=== PATIENT | male | born 1995 | race Caucasian/White ===

== ENCOUNTER 2019-12-19 15:36 | Emergency (ER) | payer OTHER, MEDICAID, SELFPAY ==
[2019-12-19 16:10] VITALS: BP 125/92; PULSE 54; RESP 16; TEMP 36.6; O2SAT 100; BMI 20.9
--- NOTE | 2019-12-19 16:16 | DI.RAD.S_ITS ---
PROCEDURE: XR FINGER LT MIN 2V INDICATIONS: jammed left fifth digit TECHNIQUE: PA view of the hand. Oblique and lateral views of the left small finger. COMPARISON: None. FINDINGS: Bones: A comminuted, minimally displaced fracture is seen in the shaft of the 5th proximal phalanx. The fracture occurred through a lucent osseous lesion that is most compatible with an enchondroma. Soft tissues: No suspicious soft tissue calcifications. IMPRESSION: Comminuted minimally displaced pathologic fracture of the shaft of the 5th proximal phalanx. 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 Dictated by: Navjot Jean M.D. on 12/19/2019 at 16:30 Approved by: Navjot Jean M.D. on 12/19/2019 at 16:35
--- NOTE | 2019-12-19 17:55 | PC.NURSE ---
Patient requesting to leave. I have been here for three hours I just need my finger fixed. Can't you just call me with the results Informed patient xray results are back, advised patient to stay and wait for provider to go over them with him and discuss a treatment plan Informed patient ER is very busy today and let patient know we have another provider coming on and will get him seen as soon as possible.
--- NOTE | 2019-12-19 18:36 | ED.GENADULT ---
HPI - General Adult General Chief complaint: Extremity Injury, Upper Stated complaint: left 5th finger injury Time Seen by Provider: 12/19/19 18:26 Source: patient Mode of arrival: Ambulatory Limitations: no limitations History of Present Illness HPI narrative: 24-year-old male here for evaluation of left little finger injury. Patient states that he was caring a box and it started to drop when he put his hand under it and it jammed his finger and bent it to the side. Has had pain since then. No prior injuries. Has not tried anything for the symptoms prior to arrival Related Data Allergies Allergy/AdvReac Type Severity Reaction Status Date / Time No Known Drug Allergies Allergy Verified 12/19/19 16:16 Review of Systems Constitutional Constitutional: Denies fever(s) Cardiovascular Cardiovascular: Denies chest pain and Denies dyspnea Respiratory Respiratory: Denies dyspnea Gastrointestinal Gastrointestinal: Denies abdominal pain, Denies nausea and Denies vomiting Musculoskeletal Comments: Left little finger pain Integumentary/Breasts Skin/Breast: Denies lesions and Denies rash Neurologic Neurologic: Denies behavioral changes Psychiatric Psychiatric: Denies behavioral changes Hematologic/Lymphatic Hematologic/Lymphatic: Denies easy bleeding and Denies easy bruising Allergic/Immunologic Allergic/Immunologic: Denies urticaria Patient History Medical History Healthy adult (Acute) Social History Smoking Status: Current every day smoker Smoking Status: Current every day smoker alcohol intake frequency: a few times a week Substance Use Type: does not use Exam Initial Vital Signs Initial Vital Signs: Vital Signs Temperature 97.9 F 12/19/19 16:10 Pulse Rate 54 L 12/19/19 16:10 Respiratory Rate 16 12/19/19 16:10 Blood Pressure 125/92 H 12/19/19 16:10 Pulse Oximetry 100 12/19/19 16:10 Const General: cooperative and comfortable Limitations: mental status not altered HENIA Head: normal to inspection and normocephalic Cardio Pulses: radial pulses present on the left Skin Lesions: no lesions Rashes: no rashes Neuro Sensory Exam: no sensory deficits noted Extrem Other: Tender to palpation along the proximal aspect of the left little finger Psych Appearance: grossly normal and well kempt Procedures Orthopedic Splinting/Casting Injury #1: Side: left Upper Extremity Injury Location: finger Upper Extremity Immobilizer: aluminum form splint Post splinting neuro exam: intact Post splinting vascular exam: intact Placed by: Provider Course Orders Ordered: ED Orders 12/19/19 16:16 XR finger LT min 2V Stat Vital Signs Vital signs: Vital Signs - 8 hr 12/19/19 16:10 Temperature 97.9 F Pulse Rate 54 L Respiratory Rate 16 Blood Pressure 125/92 H Pulse Oximetry 100 Medical Decision Making Imaging Data Extremity x-ray #1: Radiologist's Impression: [address] [address] XRay Report Signed Patient: Pola Darnell MMR#: [id number] : 1995Acct:[id number] Age/Sex: 24 / MDate of Service: 12/19/19 Loc: ED Accession Number: [id number] Procedure: XR finger LT min 2V Ordering Provider: Kian Barrett MD PROCEDURE: XR FINGER LT MIN 2V INDICATIONS: jammed left fifth digit TECHNIQUE: PA view of the hand. Oblique and lateral views of the left small finger. COMPARISON: None. FINDINGS: Bones: A comminuted, minimally displaced fracture is seen in the shaft of the 5th proximal phalanx. The fracture occurred through a lucent osseous lesion that is most compatible with an enchondroma. Soft tissues: No suspicious soft tissue calcifications. IMPRESSION: Comminuted minimally displaced pathologic fracture of the shaft of the 5th proximal phalanx. 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 Dictated by: Navjot Jean M.D. on 12/19/2019 at 16:30 Approved by: Navjot Jean M.D. on 12/19/2019 at 16:35 [facility] Narrative Medical decision making narrative: Fracture of the little finger is seen on the x-ray. Splint was placed as described above. Patient was given care instructions and return precautions. He expressed understanding and agreement. Discharge Plan Departure Patient Disposition: Home Clinical Impression: Fracture of finger of left hand Qualifiers: Encounter type: initial encounter Finger: little finger Fracture type: closed Phalanx: proximal Fracture alignment: nondisplaced Qualified Code(s): S62.647A - Nondisplaced fracture of proximal phalanx of left little finger, initial encounter for closed fracture Discharge Date/Time: 12/19/19 18:52 Instructions: How to Take Care of Your Splint Activity Restrictions/Additional Instructions: Recommend that you contact the [facility] at [phone] to schedule a follow-up for your finger fracture. Also recommend that you contact the health resource is coordinator at [phone] help you establish a primary provider. The splint that was placed here in the emergency department needs to stay on in stay clean in stay dry. You need to treat it like a cast. It will need to stay on for the next 4 weeks. Return to the emergency department for any new or worsening symptoms
--- NOTE | 2019-12-19 18:49 | PC.NURSE ---
Splint placed by provider.
== END 2019-12-19 18:52 | disposition home or self-care (01) ==
PROVIDERS: Emergency Provider Emergency Medicine
DX: S62.647A Nondisplaced fracture of proximal phalanx of left little finger, initial encounter for closed fracture (principal)
CPT/HCPCS: 73140; 99283